=== PATIENT | female | born 1975 | race Caucasian/White ===

== ENCOUNTER 2017-03-12 17:00 | Emergency (ER) | payer OTHER ==
[~2017-03-12] VITALS: Ht 177.8 cm; Wt 77.9 kg
[2017-03-12 17:02] VITALS: BP 109/71
[2017-03-12] MEDS ORDERED: LIDOCAINE 1%, 20ML ONE (17:39)
[2017-03-12] MEDS ORDERED: DIPH,PERTUSS(ACELL),TET VAC/PF 0.5 ML IM-VACC ONE ×2 (17:44→18:00)
[2017-03-12] MEDS ORDERED: LIDOCAINE 1%, 10ML INFIL ONE (18:00)
[2017-03-12] MEDS ORDERED: PLEASE ENTER ALLERGIES MC SCH ×2 (18:00)
== END 2017-03-12 19:03 | disposition home or self-care (01) ==
LOC: ED 18:57
DX: S61.213A Laceration without foreign body of left middle finger without damage to nail, initial encounter (principal); W26.0XXA Contact with knife, initial encounter; Y93.89 Activity, other specified; Y92.009 Unspecified place in unspecified non-institutional (private) residence as the place of occurrence of the external cause; Y99.9 Unspecified external cause status
CPT/HCPCS: 12001; 90471; 90715; 99283; J3490